=== PATIENT | male | born 1965 | race Caucasian/White ===

== ENCOUNTER 2022-11-25 11:24 | Emergency (ER) | payer OTHER, SELFPAY ==
[2022-11-25 11:25] VITALS: BP 138/87; PULSE 118; RESP 18; TEMP 36.3; O2SAT 98; BMI 30.4
--- NOTE | 2022-11-25 13:12 | EX.ED.DYSGE1 ---
HPI History of Present Illness Chief Complaint: Edema Informant: patient Onset/Context/Timing Onset: Days (5) Context: Gradual Onset Timing: Continuous Quality: swelling, burning like sunburn Location: started nasal bridge, now R cheek/upper lip Narrative Narrative: Patient sent here from urgent care according to the patient, because of swelling in his face. He states last week, he had a sore throat nasal congestion, and after that started, he started having spontaneous onset of swelling across to his nasal bridge. It was a little itchy, and sort of burned at that time. He was seen in urgent care, they did a strep swab and according to him it was positive so they put him on Augmentin, and he went back there today because the swelling and redness have gradually come down his face and settled more to the right cheek and his right upper lip. He denies any trouble talking, swallowing, or tongue/throat involvement at all. States the skin where is it is red feels like a sunburn, and he has no reason to have a sunburn recently, but he does not have severe pain like an abscess. He has had no drainage from any of the skin on his face. He said after he was put on Augmentin, he then did have a fever but that has not recurred, and a sore throat is better now that he has been taking the Augmentin. He is not on an ELIE inhibitor or any other regular prescriptions other than Flomax. [facility] Medical History History of kidney stones Home Medications oxycodone-acetaminophen 5 mg-325 mg tablet 1 tab PO Q6H PRN PRN Pain ##20 07/20/17 [Rx Last Taken Unknown] promethazine 25 mg tablet 25 mg PO Q6H PRN PRN Nausea ##10 07/20/17 [Rx Last Taken Unknown] tamsulosin 0.4 mg capsule (Flomax) 0.4 mg PO BREAKFAST ##5 07/20/17 [Rx Last Taken Unknown] Allergy/AdvReac Type Severity Reaction Status Date / Time codeine AdvReac Nausea/Vom/ Verified 11/25/22 11:27 Diarrhea erythromycin base AdvReac Nausea/Vom/ Verified 11/25/22 11:27 Diarrhea Social History Smoking Status: Never smoker ROS ROS ED Constitutional Constitutional ED: Reports other Details: Fevers, resolved. No other constitutional symptoms. Eyes Eyes: Denies blurry vision or diplopia ENT ENT ED: Reports as per HPI, lip swelling, rhinorrhea, sore throat and other Details: Facial swelling and redness/soreness along with some itching at the nasal bridge see HPI ; Denies ear pain, hoarseness, throat swelling or tongue swelling Cardiovascular Cardiovascular: Denies chest pain Respiratory/Chest Respiratory/Chest: Denies cough or dyspnea Gastrointestinal Gastrointestinal: Denies diarrhea, nausea or vomiting Integumentary Reports as per HPI and erythema; Denies abscess EXAM Physical Exam Const Vital Signs: 11/25/22 11:25 11/25/22 11:54 11/25/22 13:23 Temperature 97.4 F L Temperature Source Temporal Pulse Rate 118 H 81 Respiratory Rate 18 18 Respiratory Effort Normal Non-Labored Blood Pressure 138/87 H Blood Pressure Mean 104 Pulse Ox 98 98 Oxygen Delivery Method Room Air Positive well nourished and well developed General Appearance ED: well developed and NAD HEENT Reports moist mucous membranes HEENT Narrative: Posterior oropharynx, tongue, sublingual tissues normal. No sublingual edema or submental edema. No trismus. Normal symmetric tonsils. Nontender edema of the right upper lip that is not fluctuant. This progresses into the tissues of the medial right maxillary soft tissues above this, no more tenderness here than the other erythematous areas of the right lower face which progressed into the patient's mustache and hopkins with subtle surface yellowish vesicular signs of folliculitis but no obvious or expressible discharge, no pustules, no abscess no bullae. This erythematous area is very mildly tender. It is less prominent on the left maxilla but present and nontender there. The nose is normal-appearing now except for some very slight superficial skin flaking where the patient states it itches. No parotid or submandibular gland tenderness. No cervical lymphadenopathy. Eyes PERRL and EOMs intact bilaterally Eyes Narrative: No enophthalmos or proptosis. Normal eye exam otherwise. Neck no lymphadenopathy and supple Resp normal respiratory effort and clear to auscultation bilaterally Extremity normal to inspection General Extremety ED: Negative for edema or tenderness General Extremity: Negative for edema Neuro oriented x3, CN's II-XII intact bilaterally, no sensory deficits noted and gait normal Motor Exam: strength 5/5 throughout Psych mental status grossly normal Skin Skin Narrative: See HEENT exam. No other rashes or lesions. MDM MDM MDM Narrative Medical decision making narrative: This patient is on Augmentin for his strep throat which seems to be helping it. The rest of this resembles facial cellulitis and/or folliculitis, but the history of starting at his nasal bridge certainly is unusual. If I was going to treat him for facial cellulitis which I think would be reasonable, Augmentin is a reasonable first choice and I do not think he is failing it. Rather, I think that the swelling is simply draining with gravity. He agrees that it is not necessarily worse, it is just shifted down his face more. I do not think this is any type of dangerous angioedema, the swelling started at his nose not his lip and his tongue and throat are not affected. At this time I would not necessarily change treatment, but I do think it was reasonable to give him a dose of dexamethasone, nurses had put an IV and so we gave him 10 mg, I would continue the Augmentin and we discussed reasons to return which include throat or tongue involvement or systemic symptoms he is comfortable with that plan. Discharge Plan Triage Chief Complaint: Edema ED Provider: Ammon Miller Dx/Rx/DC Orders Clinical Impression: Cellulitis of face Instructions: Dexamethasone Injection, ED Cellulitis, Facial Prescriptions: No Action tamsulosin [Flomax] 0.4 MG Cap.Er.24h 0.4 mg PO BREAKFAST Qty: 5 0RF oxycodone-acetaminophen 1 TABLET tablet 1 tab PO Q6H PRN PRN (Reason: Pain) Qty: 20 0RF promethazine 25 MG tablet 25 mg PO Q6H PRN PRN (Reason: Nausea) Qty: 10 0RF Primary Care Provider: Alexi Ross Referrals: Alexi Ross MD [Primary Care Provider] - 3-5 Days Disposition Disposition: Home, Self Care Discharge Date/Time: 11/25/22 13:24
[2022-11-25] MEDS: dexAMETHasone 10 MG/ML Vial IV (13:20)
[2022-11-25 13:23] VITALS: PULSE 81; RESP 18; O2SAT 98
== END 2022-11-25 13:24 | disposition home or self-care (01) ==
PROVIDERS: Emergency Provider Emergency Medicine; PCP Family Medicine; Visit Provider Emergency Medicine
DX: L03.211 Cellulitis of face (principal)
CPT/HCPCS: 96374; 99283; A4216

== ENCOUNTER 2024-04-03 10:06 | Emergency (ER) | payer OTHER, SELFPAY ==
[2024-04-03] VITALS (7 sets, daily range): BP systolic 118–138; BP diastolic 83–96; PULSE 65–117; RESP 16–18; TEMP 36.2–36.6; O2SAT 95–97; BMI 29.2
--- NOTE | 2024-04-03 10:41 | CT_ITS ---
EXAM: CT ABDOMEN AND PELVIS WITH INTRAVENOUS CONTRAST CLINICAL INDICATION: diarrhea -- 4 DAYS TECHNIQUE: Helically acquired images were obtained of the abdomen and pelvis with intravenous contrast. This CT exam was performed using one or more of the following dose reduction techniques: automated exposure control, adjustment of the mA and/or kV according to patient size, and/or use of iterative reconstruction technique. CONTRAST: Oral and amp; IV Gastrografin and amp; 100mL Isovue-370 COMPARISON: CT Abdomen Pelvis dated 07/20/2017 and 12/31/2005 FINDINGS: LOWER THORAX: Normal. Lung bases are clear. No cardiomegaly. No pericardial effusion. ABDOMEN: LIVER: Normal. Homogeneous. No focal mass. GALLBLADDER AND BILE DUCTS: Normal. No calcified gallstones. No gallbladder distention or wall edema. No intra- or extrahepatic biliary ductal dilation. PANCREAS: Normal. No focal cystic or solid mass. SPLEEN: Normal. Normal size without focal cystic or solid mass. ADRENALS: Normal. No nodules. KIDNEYS AND URETERS: Nonobstructive renal stones noted bilaterally. Normal renal size and position. STOMACH AND BOWEL: Diffuse wall thickening of the large bowel and rectum indicative of proctocolitis. Questionable wall thickening of the terminal ileum. PELVIS: APPENDIX: Appendix is visualized and normal in appearance. BLADDER: Mild wall thickening of the urinary bladder which may be related to cystitis or bladder outlet obstruction. REPRODUCTIVE: Prostate gland is enlarged. The prostate gland is enlarged measuring 4.2 x 5.0 x 5.4 cm with a volume of 59.4 ml. ABDOMEN and PELVIS: INTRAPERITONEAL SPACE: Normal. No ascites or other fluid collection. No free air. BONES/JOINTS: Stable degenerative changes of the spine. SOFT TISSUES: Bilateral fat-containing inguinal hernias. VASCULATURE: Normal. Abdominal aorta is non-dilated. LYMPH NODES: Normal. No enlarged lymph nodes. CT/Abdomen/Pelvis WITH Contrast IMPRESSION: 1. Diffuse proctocolitis. Question ileitis. 2. Bilateral nephrolithiasis. 3. Urinary bladder wall thickening related to cystitis or bladder hypertrophy. 4. Prostatomegaly. 5. Fat-containing bilateral inguinal hernias. Electronically Signed: Calvin Onofre MD at 13:00 EDT ,
--- NOTE | 2024-04-03 10:42 | EDS_ITS ---
HPI History of Present Illness Chief Complaint: Diarrhea Informant: patient Onset/Context/Timing Onset: Days (4 days) Narrative Narrative: Patient presents for a history of diarrhea. He states he developed diarrhea Friday and is going approximate 20 times a day. No blood associated. He did try Pepto without improvement. Patient states he initially had some mild nausea and low-grade fever. He was seen at [facility] on Friday. They prescribed him Zofran and told him to let the diarrhea run its course. He went back to urgent care this morning and they were not able to her bowel sounds so they sent him to the ER for evaluation. He denies significant abdominal pain. No history of ulcerative colitis, Crohn's, irritable bowel syndrome. He has had colonoscopies that have been normal. He denies recent travel, camping, or antibiotics. [facility] Medical History (Updated 04/03/24 @ 13:[address] Umm Belle MD) History of kidney stones Home Medications ?Medication ?Instructions ?Recorded ?Last Taken ?Type oxycodone-acetaminophen 5 mg-325 1 tab PO Q6H PRN PRN Pain ##20 07/20/17 Unknown Rx mg tablet promethazine 25 mg tablet 25 mg PO Q6H PRN PRN Nausea ##10 07/20/17 Unknown Rx tamsulosin 0.4 mg capsule (Flomax) 0.4 mg PO BREAKFAST ##5 07/20/17 Unknown Rx ciprofloxacin HCl 500 mg tablet 500 mg PO BID #14 TABLETS 04/03/24 Unknown Rx hydrocortisone 100 mg/60 mL enema 100 mg (60 mL) SC BID 7 days #840 04/03/24 Unknown Rx mL metronidazole 500 mg tablet 500 mg PO BID 10 days #20 tabs 04/03/24 Unknown Rx prednisone 20 mg tablet 40 mg (2 x 20 mg) PO DAILY #14 tabs 04/03/24 Unknown Rx Allergy/AdvReac Type Severity Reaction Status Date / Time codeine AdvReac Nausea/Vom/ Verified 11/25/22 11:27 Diarrhea erythromycin base AdvReac Nausea/Vom/ Verified 11/25/22 11:27 Diarrhea Surgical History (Updated 04/03/24 @ 10:[address] Umm Belle MD) History of tonsillectomy History of arthroscopic knee surgery Social History Smoking Status: Never smoker ROS ROS ED Constitutional Constitutional ED: Reports fever(s); Denies chills Eyes Eyes: Denies discharge from eye(s) ENT ENT ED: Denies discharge from eye(s), rhinorrhea or sore throat Cardiovascular Cardiovascular: Denies chest pain or palpitations Respiratory/Chest Respiratory/Chest: Denies cough or dyspnea Gastrointestinal Gastrointestinal: Reports diarrhea and nausea; Denies abdominal pain or vomiting Genitourinary Genitourinary ED: Denies dysuria Musculoskeletal Musculoskeletal: Denies back pain or extremity pain Integumentary Denies Abrasions or rash Neurologic Neurologic: Denies headache(s) or weakness Psychiatric Psychiatric: Denies anxiety or depression Allergic/Immunologic Allergic/Immunologic ED: Denies lip swelling or urticaria EXAM Physical Exam Const Vital Signs: 04/03/24 10:06 04/03/24 10:08 04/03/24 11:08 Temperature 97.2 F L 97.2 F L 97.6 F L Temperature Source Temporal Temporal Temporal Pulse Rate 117 H 89 68 Respiratory Rate 16 18 16 Blood Pressure 138/96 H 118/87 H 131/86 H Blood Pressure Mean 110 97 101 Pulse Ox 96 95 97 Oxygen Delivery Method Room Air Room Air Room Air 04/03/24 12:00 04/03/24 12:06 04/03/24 14:00 Temperature 97.2 F L 97.2 F L 97.8 F Temperature Source Temporal Temporal Temporal Pulse Rate 65 72 76 Respiratory Rate 16 16 16 Blood Pressure 124/83 H 124/83 H 135/83 H Blood Pressure Mean 96 96 100 Pulse Ox 96 97 97 Oxygen Delivery Method Room Air Room Air Room Air 04/03/24 14:09 Temperature 97.8 F Temperature Source Pulse Rate 85 Respiratory Rate 16 Blood Pressure 135/83 H Blood Pressure Mean 100 Pulse Ox 97 Oxygen Delivery Method Positive well nourished and well developed General Appearance ED: well developed HEENT Reports dry mucous membranes Mouth ED: Yes dry mucous membranes Mouth: dry mucous membranes Eyes EOMs intact bilaterally Neck no lymphadenopathy Chest Wall inspection of chest normal and palpation of chest normal Resp normal respiratory effort and clear to auscultation bilaterally Cardio regular rate and regular rhythm GI non-tender Auscultation: normoactive bowel sounds Palpation: soft Extremity normal to inspection Neuro oriented x3 and no sensory deficits noted Motor Exam: strength 5/5 throughout Psych mental status grossly normal Skin no rashes or lesions noted MDM MDM MDM Narrative Medical decision making narrative: IV line established. Patient given IV fluids. Labwork obtained to evaluate for leukocytosis, anemia, and electrolyte derangement. CT scan of the abdomen pelvis with p.o. and IV contrast to be obtained to evaluate for evidence of colitis. Stool studies will be sent if he is able to provide a sample. History & Record Review Discussion w/independent historian: Patient Lab Data Attestation: I reviewed the patient's lab results. Labs: Laboratory Results - last 24 hr 04/03/24 04/03/24 10:45 10:59 WBC 11.7 H RBC 4.97 Hgb 15.5 Hct 44.3 MCV 89.1 MCH 31.2 MCHC 35.0 RDW Std Deviation 43.2 RDW Coeff of Anselmo 13.2 Plt Count 228 MPV 9.9 Immature Gran % (Auto) 0.400 Neut % (Auto) 72.5 H Lymph % (Auto) 9.5 L [place] % (Auto) 17.1 H Eos % (Auto) 0.2 Baso % (Auto) 0.3 Absolute Neuts (auto) 8.5 H Absolute Lymphs (auto) 1.11 Nucleated RBC % 0 Diff Path Review May foll Sodium 136 Potassium 3.7 Chloride 105 Carbon Dioxide 25.0 Anion Gap 6 BUN 17 Creatinine 1.03 Estim Creat Clear Calc 90.96 Est GFR (MDRD) Af Amer 95 Est GFR (MDRD) Non-Af 78 BUN/Creatinine Ratio 16.5 Glucose 99 Calcium 9.3 Total Bilirubin 0.40 Direct Bilirubin 0.14 AST 22 ALT 22 Alkaline Phosphatase 54 Total Protein 7.1 Albumin 3.2 Globulin 3.9 Urine Color Yellow Urine Clarity Clear Urine pH 6.0 Ur Specific [place] 1.010 Urine Protein 30 H Urine Glucose (UA) Normal Urine Ketones 15 H Urine Occult Blood 250 H Urine Nitrite Negative Urine Bilirubin Negative Urine Urobilinogen Normal Ur Leukocyte Esterase 25 H Urine RBC 0-5 SEEN Urine WBC 0-5 SEEN Ur Squamous Epith Cells 0 SEEN Urine Bacteria 0 SEEN Urine Mucus 0 SEEN Radiography Diagnostic Testing: Clinical Impression(s) from Imaging Studies Abdomen/Pelvis CT 04/03/24 10:41 IMPRESSION: 1. Diffuse proctocolitis. Question ileitis. 2. Bilateral nephrolithiasis. 3. Urinary bladder wall thickening related to cystitis or bladder hypertrophy. 4. Prostatomegaly. 5. Fat-containing bilateral inguinal hernias. Electronically Signed: Calvin Onofre MD at 13:00 EDT , Treatment and Re-Evaluation :: CBC was white count of 11.7 with 72% neutrophils. Hemoglobin normal at 15.5. Chemistry studies are unremarkable. LFTs normal. Urinalysis reveals 25 leukocyte esterase with 0-5 red cells and 0-5 white cells[address] No bacteria. CT scan of the abdomen pelvis with p.o. and IV contrast reveals diffuse proctocolitis. Question ileus. Bladder wall thickening is noted which may be related to cystitis or bladder hypertrophy. I spoke with Dr. Madison, on-call for GI. Patient will be treated with antibiotics as well as hydrocortisone enemas and prednisone. I will give him a dose of Solu-Medrol here. Prescription sent to the pharmacy for him. Patient given follow-up with GI as well as return instructions. Patient comfortable with the plan. Addendum: I was notified by nursing staff that the lab called with a positive Campylobacter result on his stool studies. Patient is already on correct antibiotics. Nursing staff will call him to notify him of his positive test results, but he does not require any change in therapy at this time. Discharge Plan Triage Chief Complaint: Diarrhea ED Provider: Umm Belle Dx/Rx/DC Orders Clinical Impression: Proctocolitis Instructions: ED Understanding Colitis Prescriptions: New hydrocortisone 100 mg/60 mL enema 100 mg SC BID 7 Days Qty: 840 0RF prednisone 20 mg tablet 40 mg PO DAILY Qty: 14 0RF ciprofloxacin HCl 500 mg tablet 500 mg PO BID Qty: 14 0RF metronidazole 500 mg tablet 500 mg PO BID 10 Days Qty: 20 0RF No Action tamsulosin [Flomax] 0.4 MG capsule 0.4 mg PO BREAKFAST Qty: 5 0RF oxycodone-acetaminophen 1 TABLET tablet 1 tab PO Q6H PRN PRN (Reason: Pain) Qty: 20 0RF promethazine 25 MG tablet 25 mg PO Q6H PRN PRN (Reason: Nausea) Qty: 10 0RF Primary Care Provider: Alexi Ross Referrals: Gio Madison DO [Med Staff - Active Staff] - As Needed Alexi Ross MD [Primary Care Provider] - Print Language: Japanese Disposition Disposition: Home, Self Care Discharge Date/Time: 04/03/24 14:10
[2024-04-03] MEDS: 0.9% Normal Saline (1000mL) 1,000 ML 1000 ML IV (10:55)
[2024-04-03 11:04] LABS: Bacteria 0 SEEN /hpf (None Seen); Mucous, Urine 0 SEEN /hpf (<or=2+); Squamous Epithelial Cells - UA 0 SEEN /hpf (0-5)
[2024-04-03 11:07] LABS: Absolute Lymphocyte Count 1.11 X10^3/uL (0.83-4.51); Absolute Neutrophil Count 8.5 X10^3/uL (2.0-7.7); Basophil# 0.04 X10^3/uL; Basophil% 0.3 % (0-1); Eosinophil# 0.02 X10^3/uL; Eosinophils% 0.2 % (0-5); Hematocrit 44.3 % (40-54); Hemoglobin 15.5 g/dL (13.0-16.5); Lymphocyte # 1.11 X10^3/ul (0.83-4.51); Lymphocyte % 9.5 % (19-41); Mean Corpuscular Hgb 31.2 pg (27.0-32.0); Mean Corpuscular Volume 89.1 fL (80-94); Mean Platelet Vol. 9.9 fl (6.2-12.0); Monocyte# 1.99 X10^3/uL; Monocyte% 17.1 % (0-10); NRBC Flagged by Analyzer 0 % (0-5); Neutrophil # 8.45 X10^3/uL (2.7-7.7); Neutrophil % 72.5 % (47-70); POSITIVE DIFFERENTIAL YES; Platelet Count 228 K/mm3 (150-450); RBC Distribution Width CV 13.2 % (11.6-14.6); RBC Distribution Width SD 43.2 fl (35.1-43.9); Red Blood Count 4.97 M/mm3 (4.6-6.2); White Blood Count 11.7 K/mm3 (4.4-11.0)
[2024-04-03 11:13] LABS: Color, Urine Yellow (Yellow); Glucose, Dipstick Normal (Normal); Ketone-Dipstick 15 mg/dl (Negative); Leukocyte Esterase-Dipstick 25 /ul (Negative); Nitrite-Dipstick Negative (Negative); Occult Blood-Urine 250 /ul (Negative); Protein-Dipstick 30 mg/dl (Negative); Urine Bilirubin Dipstick Negative (Negative); Urine Clarity Clear (Clear); Urine Urobilinogen Normal (Normal)
[2024-04-03 11:13] LABS: Differential Indicated SCAN CRITERIA MET
[2024-04-03 11:19] LABS: Red Blood Cells-Urine 0-5 SEEN /hpf (0-5); White Blood Cells 0-5 SEEN /hpf (0-5)
[2024-04-03 11:22] LABS: AST(SGOT) 22 U/L (15-37); Alanine Aminotransfer ALT/SGPT 22 U/L (16-61); Albumin, Serum 3.2 g/dL (3.2-5.0); Alkaline Phosphatase 54 U/L (45-117); Anion Gap 6 (5-15); BUN 17 mg/dL (7-18); BUN/Creat Ratio 16.5 RATIO (10-20); Bilirubin, Direct 0.14 mg/dL (0.00-0.30); Calcium,Total 9.3 mg/dL (8.5-10.1); Chloride 105 mmol/L (98-107); Creatinine, Serum 1.03 mg/dL (0.70-1.30); EST Glomerular Filtration Rate 78 mL/min (>60); Est Glom Filt Rate - Afr Amer 95 mL/min (>60); Estimated Creatinine Clearance 90.96 ml/min; Globulin 3.9 g/dL (2.2-4.2); Glucose 99 mg/dL (74-106); Potassium 3.7 mmol/L (3.5-5.1); Protein, Total 7.1 g/dL (6.4-8.2); Sodium Level 136 mmol/L (136-145)
[2024-04-03] MEDS: 0.9% Normal Saline (1000mL) 1,000 ML 150 ML IV (12:12)
[2024-04-03] MEDS: metroNIDAZOLE 500 MG Tablet PO (13:59)
[2024-04-03] MEDS: Ciprofloxacin 500 MG Tablet PO (13:59)
[2024-04-03] MEDS: MethylPREDNISolone 125 MG/2 ML Vial 60 MG IV (14:00)
--- NOTE | 2024-04-03 17:07 | ED.RN ---
dr. dallas wanted pt informed that he has Campylobacter and that he is on the appropriate atb. attempted to call at 1700, no answer.
--- NOTE | 2024-04-03 17:08 | ED.RN ---
1709 second attempt to contact pt.
--- NOTE | 2024-04-03 17:10 | ED.RN ---
contact pt. pt aware of dx and that he is on appropriate atb.
[2024-04-05 15:27] LABS: Pathologist Review Reviewed
== END 2024-04-03 14:10 | disposition home or self-care (01) ==
PROVIDERS: Emergency Provider Emergency Medicine; PCP Family Medicine; Visit Provider Emergency Medicine
DX: R19.7 Diarrhea, unspecified (principal); A04.5 Campylobacter enteritis
CPT/HCPCS: 74177; 80048; 80076; 81001; 83630; 85025; 87177; 87209; 87493; 87506; 96361; 96374; 99283; J7030; Q9967